=== PATIENT | female | born 1970 | race Caucasian/White ===

== ENCOUNTER → 2021-07-28 12:44 | Outpatient (CLI) | payer BC, SELFPAY ==
--- NOTE | ~2021-07-28 | US_ITS ---
US retroperitoneal comp 07/28/2021 13:33 Procedure: Realtime transabdominal ultrasound of the kidneys and bladder. Indication: Left flank pain Comparison: No prior studies for comparison. Findings: Renal echotexture is normal bilaterally without hydronephrosis, contour deforming mass or r enal calculus. The right kidney measures 10.5 cm and left kidney measures 11.8 cm. Bladder within no rmal limits. Impression: 1: Unremarkable renal ultrasound. No stones, masses or hydronephrosis. Reviewed, dictated and finalized at location A. Impression: 1: Unremarkable renal ultrasound. No stones, masses or hydronephrosis.
== END ==
PROVIDERS: PCP Family Medicine; Visit Provider Family Medicine
DX: R10.9 Unspecified abdominal pain (principal)
CPT/HCPCS: 76770

== ENCOUNTER → 2021-09-16 10:30 | Outpatient (CLI) | payer BC, SELFPAY ==
--- NOTE | ~2021-09-16 | MR_ITS ---
EXAMINATION: MR lumbar spine wo [facility] EXAM DATE: 09/16/2021 11:08 INDICATION: Chronic left sided low back pain without sciatica chronic left sided low back pain w/o sc iatica TECHNIQUE: Multi-sequential, multiplanar MR images of the lumbar spine were obtained without contrast . Sagittal T1, T2, T2 fat saturation images. Axial T2 weighted images. There is no prior study for comparison. FINDINGS: There are mild compression subacute fractures of L2, L3-L4 and L5 with fracture lines ident ified, only mild loss of vertebral body height. Edema is more pronounced at L2 and L3 and L4 and L5 i ndicating those are more recent. There is moderate loss of the L2-3, L3-4 and L5-S1 disc height. 2 mm retrolisthesis L3 on L4 and L5 on S1. Paraspinal soft tissue is unremarkable. The conus medullaris t erminates at the T12-L1 level and has normal signal intensity and morphology. Level by level evaluation: T12-L1: Disc does not extend beyond the endplate margin. Facet arthropathy: Mild. Neural foraminal stenosis: No stenosis. Central canal stenosis: No stenosis. L1-L2: Disc does not extend beyond the endplate margin. Facet arthropathy: Moderate. Neural foraminal stenosis: No stenosis. Central canal stenosis: No stenosis. L2-L3: There is a mild to moderate diffuse disc bulge. Facet arthropathy: Moderate. Neural foraminal stenosis: Mild bilateral. Central canal stenosis: Mild. L3-L4: There is a mild to moderate diffuse disc bulge. Facet arthropathy: Moderate. Neural foraminal stenosis: Mild to moderate right, mild left. Central canal stenosis: Mild. L4-L5: There is a mild diffuse disc bulge. Facet arthropathy: Moderate. Neural foraminal stenosis: Mild to moderate right, mild left. Central canal stenosis: Mild. L5-S1: [id number] Facet arthropathy: Moderate. Neural foraminal stenosis: Moderate left, mild to moderate right. Central canal stenosis: Mild. IMPRESSION: 1. Subacute mild compression fractures L2-L5. 2. Mild to moderate lumbar spondylosis. Reviewed, dictated and finalized at location B. COMPANION
== END ==
PROVIDERS: PCP Family Medicine; Visit Provider Family Medicine
DX: M47.817 Spondylosis without myelopathy or radiculopathy, lumbosacral region (principal); M48.07 Spinal stenosis, lumbosacral region; M47.815 Spondylosis without myelopathy or radiculopathy, thoracolumbar region; M48.05 Spinal stenosis, thoracolumbar region; M48.56XA Collapsed vertebra, not elsewhere classified, lumbar region, initial encounter for fracture
CPT/HCPCS: 72148

== ENCOUNTER 2021-09-18 08:44 | Outpatient (CLI) | payer BC, SELFPAY ==
--- NOTE | ~2021-09-18 | NM_ITS ---
EXAMINATION: NM bone scan whole body DATE: 09/18/2021 12:25 INDICATION: Sacral lesion. TECHNIQUE: 26.8 mCi Tc-99m HDP was administered intravenously. Delayed whole-body scintigrams were o btained. COMPARISON: Lumbar spine MRI 09/16/2021, lumbar spine radiographs 08/25/2021 FINDINGS: There is joint-centered increased activity in the shoulders, knees, and feet without radiog raphic comparison, likely osteoarthritis. There is increased activity in the lumbar spine correlating with degenerative disc disease and facet joint osteoarthritis on MRI. There is no abnormal increased activity in the right sacral ala to correlate with the sclerotic lesion on radiographs. IMPRESSION: 1. No abnormal increased activity in right sacral ala to correlate with the sclerotic lesion seen on radiographs, likely a benign bone island. Reviewed, dictated and finalized at location A. [employer] IMPRESSION: 1. No abnormal increased activity in right sacral ala to correlate with the scl erotic lesion seen on radiographs, likely a benign bone island.
== END 2021-09-18 08:45 | disposition home or self-care (01) ==
PROVIDERS: PCP Family Medicine; Visit Provider Family Medicine
DX: M53.3 Sacrococcygeal disorders, not elsewhere classified (principal)
CPT/HCPCS: 78306; A9561